=== PATIENT | female | born 1990 | race Two or more races ===

== ENCOUNTER 2022-06-10 13:46 | Inpatient (IN) ==
[2022-06-10] MEDS ORDERED: SODIUM CHLORIDE 0.9% 2,050 ML IV ONE (14:04)
[2022-06-10] MEDS ORDERED: HYDROCORTISONE 100 MG VIAL IV STA (14:05)
[2022-06-10] MEDS ORDERED: ACETAMINOPHEN 500 MG TABLET PO STA (14:30)
[2022-06-10] MEDS ORDERED: DIAZEPAM 10 MG/2 ML SYRINGE IV STA (14:41)
[2022-06-10] MEDS ORDERED: VANCOMYCIN INJ 1,000 MG in SODIUM CHLORIDE 0.9% 250 ML IV ONE (15:00)
[2022-06-10 15:33] LABS: Albumin 2.5 G/DL (3.4-5.0); Bilirubin,Total 0.6 MG/DL (0.20-1.00); Calcium 8.5 MG/DL (8.5-10.1); Osmolality,Calculated 263.2 MOS/KG (273-304); Potassium 3.5 MMOL/L (3.5-5.1); Total Protein 8.4 G/DL (6.4-8.2)
[2022-06-10 16:28] LABS: Eosinophils % 1.2 % (0.00-10.9); Hematocrit 27.4 VOL% (35.7-47.0); Hemoglobin 9.3 GM/DL (12.0-16.0); Lymphocytes # 0.7 10*3/uL (1.4-4.0); Lymphocytes % 41.4 % (21.3-54.2); Mean Corpuscular HGB Conc 33.9 GM/DL (32-36); Mean Corpuscular Volume 73.9 FL (87-102); Monocytes # 0.2 10*3/uL (0.11-0.8); Monocytes % 10.7 % (1.7-12.7); Neutrophils % 46.7 % (38.7-73.9); Platelet Count 194 T/CUMM (130-400); Red Blood Count 3.71 MC/CUMM (3.8-5.5); Red Cell Distribution Width 17.4 % (9.3-17.3); White Blood Count 1.7 T/CUMM (4-12)
[2022-06-10 16:41] LABS: INR 1.2; PT Patient Result 13.5 SECS (10.1-12.1); Partial Thromboplastin Time 36.9 SECS (23.7-32.9)
[2022-06-10 17:00] LABS: Band Neutrophils 1 % (0-10); Eosinophils 2 % (0-10); Lymphocytes 41 % (20-55); Total Cells Counted 100
[2022-06-10 17:01] LABS: Anisocytosis 1+; Hypochromia 1+; Platelet Estimate Adequate
[2022-06-10] MEDS: SODIUM CHLORIDE 0.9% 1,000 ML IV SCH (18:39)
[2022-06-10 19:19] LABS: Bilirubin,Urine Negative (Negative); Blood, Urine Negative (Negative); Glucose,Urine (UA) Negative (Negative); Ketones,Urine Negative (Negative); Nitrite,Urine Negative (Negative); Protein,Urine Negative (Negative); Urine Appearance Clear (Clear); Urine Color Yellow (Yellow); Urine Specific Gravity <= 1.005 (1.001-1.035); Urine Urobilinogen 0.2 eU/dL (<2.0)
[2022-06-10 19:22] LABS: Bacteria,Urine Occasional /HPF (Few); Mucus,Urine Occasional /LPF (Occasional); RBC,Urine 2 /HPF (0-4); Squamous Epithelial Cell,Urine Occasional /HPF (0-10)
[2022-06-10 19:32] LABS: Barbiturates Screen,Urine Negative (Negative); Benzodiazepines Screen,Urine Negative (Negative); Cannabinoid Screen,Urine Positive (Negative); Opiate Screen,Urine Negative (Negative); Phencyclidine Screen,Urine Negative (Negative)
[2022-06-10] MEDS: DIAZEPAM 2 MG TABLET PO PRN (21:44)
[2022-06-10] MEDS: HYDROCORTISONE 100 MG VIAL IV SCH (21:44)
[2022-06-10] MEDS: ZALEPLON 5 MG CAPSULE PO PRN (21:44)
[2022-06-10] MEDS: ENOXAPARIN 40 MG/0.4 ML SYRINGE SUBCUT SCH (21:44)
[2022-06-11] MEDS: OLANZapine 5 MG TABLET PO SCH ×2 (00:24→09:47)
[2022-06-11] MEDS: HALOPERIDOL 5 MG/ML AMP IM PRN ×5 (00:28→23:33)
[2022-06-11] MEDS: VANCOMYCIN INJ 1,000 MG in SODIUM CHLORIDE 0.9% 250 ML IV SCH ×2 (03:32→18:41)
[2022-06-11] MEDS: SODIUM CHLORIDE 0.9% 1,000 ML IV SCH ×2 (03:32→12:06)
[2022-06-11] MEDS: DIAZEPAM 2 MG TABLET PO PRN ×3 (04:56→22:13)
[2022-06-11 05:43] LABS: Calcium 7.2 MG/DL (8.5-10.1); Potassium 3.2 MMOL/L (3.5-5.1)
[2022-06-11] MEDS: HYDROCORTISONE 100 MG VIAL IV SCH ×3 (06:18→22:11)
[2022-06-11 07:24] LABS: Hematocrit 20.7 VOL% (35.7-47.0); Lymphocytes # 0.5 10*3/uL (1.4-4.0); Lymphocytes % 54.6 % (21.3-54.2); Mean Corpuscular HGB Conc 34.3 GM/DL (32-36); Mean Corpuscular Volume 73.7 FL (87-102); Mean Platelet Volume 9.4 FL (9.6-12.0); Monocytes # 0.1 10*3/uL (0.11-0.8); Monocytes % 9.3 % (1.7-12.7); Neutrophils % 36.1 % (38.7-73.9); Platelet Count 170 T/CUMM (130-400); Red Cell Distribution Width 17.2 % (9.3-17.3)
[2022-06-11 07:33] LABS: Hemoglobin 7.1 GM/DL (12.0-16.0); Red Blood Count 2.81 MC/CUMM (3.8-5.5)
[2022-06-11 07:48] LABS: Lymphocytes 65 % (20-55); Platelet Estimate Adequate; Total Cells Counted 100
[2022-06-11 07:49] LABS: Hypochromia 1+; Microcytosis 1+
[2022-06-11] MEDS: PANTOPRAZOLE 40 MG TABLET PO SCH (09:48)
[2022-06-11 12:22] LABS: Hematocrit 20.9 VOL% (35.7-47.0); Immature Granulocytes % 0.9 %; Immature Granulocytes Absolute 0.01 #; Lymphocytes # 0.5 10*3/uL (1.4-4.0); Mean Corpuscular HGB Conc 33.5 GM/DL (32-36); Mean Corpuscular Volume 74.4 FL (87-102); Monocytes # 0.1 10*3/uL (0.11-0.8); Monocytes % 8.1 % (1.7-12.7); Platelet Count 179 T/CUMM (130-400); Red Blood Count 2.81 MC/CUMM (3.8-5.5); White Blood Count 1.1 T/CUMM (4-12)
[2022-06-11] MEDS ORDERED: POTASSIUM CHLORIDE 20 MEQ TABLET PO ONE (12:30)
[2022-06-11 12:48] LABS: Anisocytosis 1+; Band Neutrophils 10 % (0-10); Hypochromia Slight; Lymphocytes 30 % (20-55); Platelet Estimate Normal; Total Cells Counted 100
[2022-06-11] MEDS ORDERED: MAGNESIUM SULF RIDER 4 GM/100 ML PREMIX IV ONE (13:30)
[2022-06-11 13:31] LABS: % Iron Saturation 34.8 % (18-50); Ferritin 284.1 ng/mL (8-252)
[2022-06-11 13:33] LABS: Folate 10.94 NG/ML (5.38-24.0)
[2022-06-11] MEDS ORDERED: MAGNESIUM SULF RIDER 4 GM/100 ML PREMIX IV PRN (16:39)
[2022-06-11] MEDS: ONDANSETRON 4 MG/2 ML VIAL IV PRN (17:09)
[2022-06-11] MEDS: POTASSIUM CHLORIDE 20 MEQ TABLET PO PRN ×2 (18:40→22:12)
[2022-06-11] MEDS: ENOXAPARIN 40 MG/0.4 ML SYRINGE SUBCUT SCH (22:12)
[2022-06-12] MEDS: POTASSIUM CHLORIDE 20 MEQ TABLET PO PRN (00:35)
[2022-06-12] MEDS: SODIUM CHLORIDE 0.9% 1,000 ML IV SCH ×2 (03:38)
[2022-06-12] MEDS: DIAZEPAM 2 MG TABLET PO PRN ×3 (05:43→21:25)
[2022-06-12] MEDS: VANCOMYCIN INJ 1,000 MG in SODIUM CHLORIDE 0.9% 250 ML IV SCH ×2 (05:44→23:20)
[2022-06-12] MEDS: HYDROCORTISONE 100 MG VIAL IV SCH ×3 (05:44→21:25)
[2022-06-12 07:31] LABS: Hematocrit 20.8 VOL% (35.7-47.0); Immature Granulocytes % 0.8 %; Immature Granulocytes Absolute 0.01 #; Lymphocytes # 0.7 10*3/uL (1.4-4.0); Mean Corpuscular HGB Conc 33.7 GM/DL (32-36); Mean Corpuscular Volume 74.6 FL (87-102); Mean Platelet Volume 10.4 FL (9.6-12.0); Monocytes # 0.1 10*3/uL (0.11-0.8); Monocytes % 9.6 % (1.7-12.7); Neutrophils % 37.6 % (38.7-73.9); Platelet Count 191 T/CUMM (130-400); Red Blood Count 2.79 MC/CUMM (3.8-5.5); Red Cell Distribution Width 17.1 % (9.3-17.3); White Blood Count 1.3 T/CUMM (4-12)
[2022-06-12 07:49] LABS: Albumin 2.1 G/DL (3.4-5.0); Bilirubin,Total 0.5 MG/DL (0.20-1.00); Calcium 7.4 MG/DL (8.5-10.1); Osmolality,Calculated 284.7 MOS/KG (273-304); Potassium 3.9 MMOL/L (3.5-5.1); Total Protein 6.8 G/DL (6.4-8.2)
[2022-06-12 07:53] LABS: Calcium 7.7 MG/DL (8.5-10.1); Osmolality,Calculated 279.1 MOS/KG (273-304); Potassium 3.7 MMOL/L (3.5-5.1)
[2022-06-12 07:58] LABS: Atypical Lymphocytes Few; Hypochromia 1+; Lymphocytes 50 % (20-55); Microcytosis 1+; Platelet Estimate Adequate; Total Cells Counted 100
[2022-06-12] MEDS: PANTOPRAZOLE 40 MG TABLET PO SCH (08:12)
[2022-06-12] MEDS: OLANZapine 5 MG TABLET PO SCH (08:12)
[2022-06-12] MEDS: HALOPERIDOL 5 MG/ML AMP IM PRN ×3 (08:12→23:20)
[2022-06-12] MEDS ORDERED: HEPARIN 5,000 UNIT/1 ML VIAL ONE (09:15)
[2022-06-12] MEDS: CYANOCOBALAMIN 500 MCG TABLET PO SCH ×2 (11:08→21:40)
[2022-06-12] MEDS: FOLIC ACID 1 MG TABLET PO SCH (11:08)
[2022-06-12] MEDS: CEFEPIME 1,000 MG in SODIUM CHLORIDE 0.9% 100 ML IV SCH ×3 (11:08→21:25)
[2022-06-12] MEDS: ONDANSETRON 4 MG/2 ML VIAL IV PRN (13:06)
[2022-06-12] MEDS: ENOXAPARIN 40 MG/0.4 ML SYRINGE SUBCUT SCH (21:25)
[2022-06-13] MEDS: DIAZEPAM 2 MG TABLET PO PRN ×2 (02:14→18:34)
[2022-06-13] MEDS: SODIUM CHLORIDE 0.9% 1,000 ML IV SCH ×2 (03:15→06:18)
[2022-06-13] MEDS: CEFEPIME 1,000 MG in SODIUM CHLORIDE 0.9% 100 ML IV SCH ×4 (06:11→21:29)
[2022-06-13] MEDS: HYDROCORTISONE 100 MG VIAL IV SCH ×3 (06:12→21:30)
[2022-06-13] MEDS: HALOPERIDOL 5 MG/ML AMP IM PRN ×2 (06:30→18:35)
[2022-06-13 06:48] LABS: Hematocrit 20.7 VOL% (35.7-47.0); Immature Granulocytes % 2.1 %; Immature Granulocytes Absolute 0.03 #; Lymphocytes # 0.8 10*3/uL (1.4-4.0); Mean Corpuscular HGB Conc 33.8 GM/DL (32-36); Mean Corpuscular Volume 74.2 FL (87-102); Mean Platelet Volume 9.9 FL (9.6-12.0); Monocytes # 0.2 10*3/uL (0.11-0.8); Monocytes % 10.7 % (1.7-12.7); Neutrophils % 27.2 % (38.7-73.9); Platelet Count 152 T/CUMM (130-400); Red Blood Count 2.79 MC/CUMM (3.8-5.5); Red Cell Distribution Width 17.3 % (9.3-17.3); White Blood Count 1.4 T/CUMM (4-12)
[2022-06-13 07:16] LABS: Calcium 7.8 MG/DL (8.5-10.1); Osmolality,Calculated 284.7 MOS/KG (273-304)
[2022-06-13 07:19] LABS: Atypical Lymphocytes Few; Band Neutrophils 1 % (0-10); Eosinophils 1 % (0-10); Hypochromia 1+; Lymphocytes 52 % (20-55); Microcytosis 1+; Platelet Estimate Adequate; Total Cells Counted 100
[2022-06-13] MEDS: CYANOCOBALAMIN 500 MCG TABLET PO SCH ×2 (08:42→21:29)
[2022-06-13] MEDS: PANTOPRAZOLE 40 MG TABLET PO SCH (08:42)
[2022-06-13] MEDS: OLANZapine 5 MG TABLET PO SCH (08:42)
[2022-06-13] MEDS: FOLIC ACID 1 MG TABLET PO SCH (08:42)
[2022-06-13] MEDS: POTASSIUM CHLORIDE 20 MEQ TABLET PO PRN ×3 (08:43→15:35)
[2022-06-13] MEDS: MAGNESIUM SULF RIDER 2 GM/50 ML PREMIX IV PRN ×2 (09:00→12:37)
[2022-06-13] MEDS ORDERED: POTASSIUM CHLORIDE 20 MEQ TABLET PO ONE (09:11)
[2022-06-13] MEDS ORDERED: MAGNESIUM SULF RIDER 4 GM/100 ML PREMIX IV ONE (09:11)
[2022-06-13] MEDS: VANCOMYCIN INJ 1,000 MG in SODIUM CHLORIDE 0.9% 250 ML IV SCH ×2 (10:55→23:08)
[2022-06-13] MEDS: ONDANSETRON 4 MG/2 ML VIAL IV PRN (12:38)
[2022-06-13] MEDS: ENOXAPARIN 40 MG/0.4 ML SYRINGE SUBCUT SCH (21:29)
[2022-06-14] MEDS: SODIUM CHLORIDE 0.9% 1,000 ML IV SCH ×2 (01:25→01:55)
[2022-06-14] MEDS: CEFEPIME 1,000 MG in SODIUM CHLORIDE 0.9% 100 ML IV SCH ×4 (02:12→21:30)
[2022-06-14] MEDS: ZALEPLON 5 MG CAPSULE PO PRN ×2 (02:12→22:36)
[2022-06-14] MEDS: DIAZEPAM 2 MG TABLET PO PRN ×2 (03:50→16:15)
[2022-06-14 05:11] LABS: Hematocrit 20.7 VOL% (35.7-47.0); Hemoglobin 6.8 GM/DL (12.0-16.0); Immature Granulocytes % 3.4 %; Immature Granulocytes Absolute 0.04 #; Lymphocytes # 0.7 10*3/uL (1.4-4.0); Lymphocytes % 62.4 % (21.3-54.2); Mean Corpuscular HGB Conc 32.9 GM/DL (32-36); Mean Platelet Volume 10.5 FL (9.6-12.0); Monocytes # 0.2 10*3/uL (0.11-0.8); Monocytes % 13.7 % (1.7-12.7); NRBC # 0.04 10*3/uL; Neutrophils % 20.5 % (38.7-73.9); Platelet Count 127 T/CUMM (130-400); Red Blood Count 2.76 MC/CUMM (3.8-5.5); Red Cell Distribution Width 17.2 % (9.3-17.3); White Blood Count 1.2 T/CUMM (4-12)
[2022-06-14 05:28] LABS: Calcium 7.6 MG/DL (8.5-10.1); Potassium 3.4 MMOL/L (3.5-5.1)
[2022-06-14 05:45] LABS: Atypical Lymphocytes Few; Hypochromia 1+; Lymphocytes 61 % (20-55); Microcytosis 1+; Platelet Estimate Normal; Total Cells Counted 100
[2022-06-14] MEDS: HYDROCORTISONE 100 MG VIAL IV SCH ×3 (06:11→21:31)
[2022-06-14] MEDS: PANTOPRAZOLE 40 MG TABLET PO SCH (09:17)
[2022-06-14] MEDS: ONDANSETRON 4 MG/2 ML VIAL IV PRN ×3 (09:17→19:33)
[2022-06-14] MEDS: OLANZapine 5 MG TABLET PO SCH (09:17)
[2022-06-14] MEDS: FOLIC ACID 1 MG TABLET PO SCH (09:17)
[2022-06-14] MEDS: CYANOCOBALAMIN 500 MCG TABLET PO SCH ×2 (09:17→21:31)
[2022-06-14] MEDS ORDERED: POTASSIUM CHLORIDE 20 MEQ TABLET PO ONE (09:40)
[2022-06-14] MEDS: VANCOMYCIN INJ 1,000 MG in SODIUM CHLORIDE 0.9% 250 ML IV SCH ×2 (12:07→23:23)
[2022-06-14] MEDS: ENOXAPARIN 40 MG/0.4 ML SYRINGE SUBCUT SCH (21:31)
[2022-06-15] MEDS: CEFEPIME 1,000 MG in SODIUM CHLORIDE 0.9% 100 ML IV SCH ×4 (02:26→21:45)
[2022-06-15] MEDS: ACETAMINOPHEN 325 MG TABLET PO PRN ×2 (04:45→08:16)
[2022-06-15] MEDS: DIAZEPAM 2 MG TABLET PO PRN (05:42)
[2022-06-15] MEDS: HYDROCORTISONE 100 MG VIAL IV SCH ×3 (05:42→21:46)
[2022-06-15] MEDS: OLANZapine 5 MG TABLET PO SCH (08:15)
[2022-06-15] MEDS: FOLIC ACID 1 MG TABLET PO SCH (08:16)
[2022-06-15] MEDS: CYANOCOBALAMIN 500 MCG TABLET PO SCH ×2 (08:17→21:46)
[2022-06-15] MEDS: PANTOPRAZOLE 40 MG TABLET PO SCH (08:17)
[2022-06-15] MEDS: VANCOMYCIN INJ 1,000 MG in SODIUM CHLORIDE 0.9% 250 ML IV SCH (12:34)
[2022-06-15] MEDS: DICLOFENAC 1% GEL 100 GM TUBE TOP SCH ×2 (16:03→21:46)
[2022-06-15] MEDS: ENOXAPARIN 40 MG/0.4 ML SYRINGE SUBCUT SCH (21:46)
[2022-06-15] MEDS: ZALEPLON 5 MG CAPSULE PO PRN (21:47)
[2022-06-16] MEDS: VANCOMYCIN INJ 1,000 MG in SODIUM CHLORIDE 0.9% 250 ML IV SCH ×3 (00:17→22:55)
[2022-06-16 04:53] LABS: Basophils % 0.7 % (0.0-0.8); Hematocrit 22.1 VOL% (35.7-47.0); Hemoglobin 7.4 GM/DL (12.0-16.0); Immature Granulocytes % 5.4 %; Immature Granulocytes Absolute 0.08 #; Lymphocytes # 0.8 10*3/uL (1.4-4.0); Lymphocytes % 55.1 % (21.3-54.2); Mean Corpuscular HGB Conc 33.5 GM/DL (32-36); Mean Corpuscular Volume 75.4 FL (87-102); Mean Platelet Volume 10.7 FL (9.6-12.0); Monocytes # 0.2 10*3/uL (0.11-0.8); Monocytes % 15.6 % (1.7-12.7); NRBC # 0.06 10*3/uL; Neutrophils % 23.2 % (38.7-73.9); Platelet Count 104 T/CUMM (130-400); Red Blood Count 2.93 MC/CUMM (3.8-5.5); Red Cell Distribution Width 17.8 % (9.3-17.3); White Blood Count 1.5 T/CUMM (4-12)
[2022-06-16 05:14] LABS: Calcium 8.5 MG/DL (8.5-10.1); Osmolality,Calculated 281.1 MOS/KG (273-304)
[2022-06-16 05:49] LABS: Potassium 2.5 MMOL/L (3.5-5.1)
[2022-06-16] MEDS: POTASSIUM CHLORIDE 20 MEQ TABLET PO PRN ×4 (06:14→15:16)
[2022-06-16] MEDS: HYDROCORTISONE 100 MG VIAL IV SCH ×3 (06:15→22:07)
[2022-06-16] MEDS: CEFEPIME 1,000 MG in SODIUM CHLORIDE 0.9% 100 ML IV SCH ×3 (06:15→20:30)
[2022-06-16 06:42] LABS: Lymphocytes 61 % (20-55); Nucleated Red Blood Cells 6 /100 WBC (0-5); Total Cells Counted 100
[2022-06-16 06:43] LABS: Platelet Estimate Normal; Polychromasia Slight
[2022-06-16] MEDS: DICLOFENAC 1% GEL 100 GM TUBE TOP SCH ×3 (08:34→22:07)
[2022-06-16] MEDS: OLANZapine 5 MG TABLET PO SCH (08:34)
[2022-06-16] MEDS: PANTOPRAZOLE 40 MG TABLET PO SCH (08:34)
[2022-06-16] MEDS: CYANOCOBALAMIN 500 MCG TABLET PO SCH ×2 (08:34→22:08)
[2022-06-16] MEDS: FOLIC ACID 1 MG TABLET PO SCH (08:34)
[2022-06-16] MEDS ORDERED: POTASSIUM CHLORIDE RIDER 10 MEQ/100 ML PREMIX IV PRN (17:14)
[2022-06-16] MEDS: ONDANSETRON 4 MG/2 ML VIAL IV PRN (17:16)
[2022-06-16] MEDS: ENOXAPARIN 40 MG/0.4 ML SYRINGE SUBCUT SCH (22:07)
[2022-06-16] MEDS: ZALEPLON 5 MG CAPSULE PO PRN (22:08)
[2022-06-17] MEDS: CEFEPIME 1,000 MG in SODIUM CHLORIDE 0.9% 100 ML IV SCH ×2 (02:39→08:17)
[2022-06-17] MEDS: HYDROCORTISONE 100 MG VIAL IV SCH ×2 (06:28→14:51)
[2022-06-17] MEDS: CYANOCOBALAMIN 500 MCG TABLET PO SCH (08:18)
[2022-06-17] MEDS: OLANZapine 5 MG TABLET PO SCH (08:18)
[2022-06-17] MEDS: FOLIC ACID 1 MG TABLET PO SCH (08:18)
[2022-06-17] MEDS: PANTOPRAZOLE 40 MG TABLET PO SCH (08:19)
[2022-06-17] MEDS: DICLOFENAC 1% GEL 100 GM TUBE TOP SCH ×2 (08:20→14:58)
[2022-06-17 13:30] LABS: Hb A 62.1 % (95.8-98.0); Hb A2 3.4 % (2.0-3.3); Hb F 0 % (0.0-0.9); Variant 1 34.5 Hb C % (0.0)
[2022-06-17] MEDS ORDERED: POTASSIUM BICARB EFFERVESCENT 20 MEQ TAB.EFF PO SCH (14:30)
[2022-06-17] MEDS: ONDANSETRON 4 MG/2 ML VIAL IV PRN (14:53)
[2022-06-17] MEDS: MAGNESIUM SULF RIDER 2 GM/50 ML PREMIX IV PRN (14:55)
[2022-06-17 16:11] VITALS: BP 145/89
[2022-06-18 09:45] LABS: Hgb Elect Summary Review SEE COMMENTS
[2022-06-18 10:00] LABS: Hemoglobin A1 (Alkaline) 58.9 % (96.5-98.5); Hemoglobin C (Alkaline) 41.1 %
== END 2022-06-17 19:57 | disposition home or self-care (01) | DRG 809 ==
LOC: N.ED 13:46 → N.EDINP 15:32 → SUATTDRO 15:32 → N.3E 16:14 → N.TELES 06-12 13:03
PROVIDERS: ADMIT Internal Medicine; ATTEND Internal Medicine